=== PATIENT | female | born 1975 | race Caucasian/White ===

== ENCOUNTER 2016-08-22 17:04 | Outpatient (CLI) | payer BC ==
[~2016-08-22 17:04] MED LIST: PERCOCET 5/31 TABLET PO; TORADOL10 MG PO; ZOFRAN4 MG PO
[2016-08-22 17:38] VITALS: BP 140/87
[2016-08-22 18:04] VITALS: BP 121/74
[2016-08-22 18:15] LABS: BASOPHIL COUNT 0.1 K/uL (0-0.1); EOSINOPHIL COUNT 0.1 K/uL (0-0.3); HEMATOCRIT 32.7 % (36.0-46.0); IMMATURE GRANULOCYTE COUNT 0.1 K/uL; INSTRUMENT ABS NEUTROPHIL CT 6.5 K/uL; LYMPHOCYTE COUNT 2.4 K/uL (1.0-2.8); MCH 32.7 PG (29.0-34.0); MCHC 33.9 G/DL (30.0-36.0); MCV 96.5 FL (83-99); MEAN PLAT.VOLUME 9.5 uM^3 (9.5-12.4); MONOCYTE (%) 10.5 % (3-12); MONOCYTE COUNT 1.1 K/uL (0-0.8); NEUTROPHIL (%) 63.8 % (45-76); NEUTROPHIL COUNT 6.5 K/uL (1.8-6.4); PLATELET COUNT 272 K/uL (156-360); RBC DIS.WIDTH-CV 13.8 % (11.8-14.6); RBC DIS.WIDTH-SD 48.7 % (39-53); RED BLOOD COUNT 3.39 M/uL (3.80-5.20); WHITE BLOOD COUNT 10.2 K/uL (4.1-10.2)
[2016-08-22 18:34] VITALS: BP 129/86
[2016-08-22 18:44] LABS: ANION GAP 12 MEQ/L (2-14); CHLORIDE 106 MEQ/L (99-109); POTASSIUM 3.7 MEQ/L (3.7-5.4); SAMPLE HEMOLYSIS CHECK 0; SAMPLE ICTERIC CHECK 0; SAMPLE LIPEMIA CHECK 0; SODIUM 136 MEQ/L (136-147); TOTAL BILIRUBIN 0.2 MG/DL (0.0-1.0)
[2016-08-22 18:50] LABS: ALKALINE PHOSPHATASE 114 IU/L (3-129); GFR ESTIMATE (CALCULATED) > 59 mL/min/; GLUCOSE 82 mg/dL (70-99); UREA NITROGEN (BUN) 13 mg/dL (9-23)
[2016-08-22 18:50] LABS: UR CREATININE CONCENTRATION 71.2 MG/DL
[2016-08-22 18:58] VITALS: BP 126/79
[2016-08-22 19:29] VITALS: BP 129/81
[2016-08-22] MEDS ORDERED: PRENATAL TABLE1 EAC3 PO (19:31)
[2016-08-22] MEDS ORDERED: VITAMIN B-6100 MG PO (19:31)
[2016-08-22] MEDS ORDERED: ZANTAC150 MG PO (19:32)
== END 2016-08-22 19:42 | disposition home or self-care (01) ==
LOC: LDRP-OP 17:04 → 2WEST 17:05 → LDRP-OP 11-03 14:33
PROVIDERS: Nurse Practitioner
DX: O13.3 Gestational [pregnancy-induced] hypertension without significant proteinuria, third trimester (principal); Z3A.34 34 weeks gestation of pregnancy; O09.513 Supervision of elderly primigravida, third trimester
CPT/HCPCS: 59025; 80053; 82570; 84156; 85025; G0378

== ENCOUNTER 2016-09-18 22:11 | Inpatient (IN) | payer BC ==
[~2016-09-18] VITALS: Ht 175.3 cm; Wt 83.9 kg
[~2016-09-18 22:11] MED LIST changes: +PRENATAL TABLE1 EAC3 PO; +VITAMIN B-6100 MG PO; +ZANTAC150 MG PO
[2016-09-18 22:25] VITALS: BP 165/91
[2016-09-18 22:48] VITALS: BP 160/84
[2016-09-18 23:49] LABS: BASOPHIL COUNT 0.1 K/uL (0-0.1); EOSINOPHIL (%) 0.7 % (0-5); EOSINOPHIL COUNT 0.1 K/uL (0-0.3); HEMATOCRIT 35.7 % (36.0-46.0); IMMATURE GRANULOCYTE (%) 1.2 % (0.0-0.7); IMMATURE GRANULOCYTE COUNT 0.1 K/uL; INSTRUMENT ABS NEUTROPHIL CT 7.6 K/uL; LYMPHOCYTE COUNT 3.2 K/uL (1.0-2.8); MCH 33.3 PG (29.0-34.0); MCHC 34.5 G/DL (30.0-36.0); MCV 96.7 FL (83-99); MEAN PLAT.VOLUME 9.5 uM^3 (9.5-12.4); MONOCYTE (%) 8.5 % (3-12); NEUTROPHIL (%) 62.9 % (45-76); NEUTROPHIL COUNT 7.6 K/uL (1.8-6.4); PLATELET COUNT 229 K/uL (156-360); RBC DIS.WIDTH-CV 14.5 % (11.8-14.6); RBC DIS.WIDTH-SD 51.1 % (39-53); RED BLOOD COUNT 3.69 M/uL (3.80-5.20)
[2016-09-18 23:54] VITALS: BP 132/79
[2016-09-19] VITALS (8 sets, daily range): BP systolic 124–146; BP diastolic 77–88
[2016-09-19] LABS: CHLORIDE 108 mEq/L (99-109); SODIUM 138 mEq/L (136-147)
[2016-09-19 00:02] LABS: GLUCOSE 80 mg/dL (70-99)
[2016-09-19 00:03] LABS: ANION GAP 12 MEQ/L (2-14)
[2016-09-19 00:04] LABS: TOTAL BILIRUBIN 0.2 mg/dL (0.0-1.0)
[2016-09-19 00:05] LABS: ALKALINE PHOSPHATASE 159 IU/L (3-129)
[2016-09-19 00:06] LABS: GFR ESTIMATE (CALCULATED) > 59 mL/min/
[2016-09-19 00:07] LABS: UREA NITROGEN (BUN) 14 mg/dL (9-23)
[2016-09-19] MEDS ORDERED: IBUPROFEN800 MG PO (02:59)
[2016-09-19 03:09] LABS: UR CREATININE CONCENTRATION 97.6 MG/DL
[2016-09-20 14:53] VITALS: BP 120/66
[2016-09-20 23:00] VITALS: BP 117/67
[2016-09-21 07:22] VITALS: BP 118/81
[2016-09-21] MEDS ORDERED: HYDROCODON-ACE1 EAC7 PO (11:38)
== END 2016-09-21 14:00 | disposition home or self-care (01) | DRG 775 ==
LOC: LDRP-OP 22:11 → 2WEST 22:12 → LDRP-OP 11-03 21:18
PROVIDERS: Nurse Practitioner
DX: O42.02 Full-term premature rupture of membranes, onset of labor within 24 hours of rupture (principal); O70.0 First degree perineal laceration during delivery; O69.81X0 Labor and delivery complicated by cord around neck, without compression, not applicable or unspecified; Z37.0 Single live birth; Z3A.38 38 weeks gestation of pregnancy; Z85.71 Personal history of Hodgkin lymphoma; Z92.21 Personal history of antineoplastic chemotherapy
CPT/HCPCS: 80053; 82570; 84156; 85025; G0378; J0595; J7120